=== PATIENT | male | born 1950 | race Caucasian/White ===

== ENCOUNTER 2020-06-10 08:00 | Outpatient (CLI) | payer OTHER | END 2020-06-10 23:59 | disposition home or self-care (01) | LOC: PETCFH 08:00 | PROVIDERS: ATTEND Internal Medicine Hematology & Oncology | DX: C67.8 Malignant neoplasm of overlapping sites of bladder (principal); R59.0 Localized enlarged lymph nodes; N28.1 Cyst of kidney, acquired | CPT/HCPCS: 78815; A9552 ==

== ENCOUNTER 2020-06-11 23:35 | Inpatient (IN) | payer OTHER ==
[~2020-06-11] VITALS: Ht 180.3 cm; Wt 83.1 kg
[2020-06-12] MEDS ORDERED: HYDROmorphone 1 MG/ML, 1ML INJ IV ONE (00:30)
[2020-06-12] MEDS ORDERED: ONDANSETRON 2MG/ML, 2ML IVPush ONE (00:30)
[2020-06-12] MEDS ORDERED: SODIUM CHLORIDE 0.9% 1,000ML IVBOLUS ONE (00:30)
[2020-06-12 00:38] LABS: BASOPHILS % (AUTO) 1 % (0-1); EOSINOPHILS % (AUTO) 7 % (1-7); LYMPHOCYTES % (AUTO) 17 % (22-44); MEAN CORPUSCULAR HEMOGLOBIN 34.7 pg (27.5-34.5); MEAN CORPUSCULAR HGB CONC 34.3 g/dL (33.2-36.2); MEAN PLATELET VOLUME 7.7 fL (7.4-10.4); MONOCYTES % (AUTO) 8 % (2-9); NEUTROPHILS % (AUTO) 68 % (42-75); PLATELET COUNT 189 x10^3/uL (130-400); RED BLOOD COUNT 2.78 x10^6/uL (4.38-5.82); RED CELL DISTRIBUTION WIDTH 15.5 % (9.4-14.8)
[2020-06-12 00:42] LABS: MD NO
[2020-06-12] MEDS ORDERED: HYDROmorphone 1 MG/ML, 1ML INJ ONE (00:42)
[2020-06-12] MEDS ORDERED: ONDANSETRON 2MG/ML, 2ML ONE (00:43)
[2020-06-12 00:46] LABS: ALANINE AMINOTRANSFERASE 26 U/L (12-78); ALBUMIN 3.4 g/dL (3.4-5.0); ANION GAP 9 mmol/L (5-15); CALCIUM 8.8 mg/dL (8.5-10.1); CHLORIDE 97 mmol/L (98-107)
[2020-06-12 00:48] LABS: ALKALINE PHOSPHATASE 145 U/L (45-117); BILIRUBIN,TOTAL 0.3 mg/dL (0.2-1.0); TOTAL PROTEIN 6.7 g/dL (6.4-8.2)
--- NOTE | 2020-06-12 00:58 | NUR ---
BROUGHT IN BY EMS. PT STATES HIS UROSTOMY HAS WORKED SINCE 1330 TODAY HAD BLADDER AND PROSTATE REMOVED ON 04/30/20 AND HAD UROSTOMY TUBE AND BAG PLACED. PT STATES HAD A STROKE THAT TURNED INTO A TIA 2 WEEKS AGO. STAYED AT [facility] FOR 5 DAYS. PT TAKES DAILY METOPEROL, BABY ASPRIN, AND ALLOPIRNOL FOR GOUT.
--- NOTE | 2020-06-12 01:01 | NUR ---
PT ALVARO CALLED AND LEFT HER NUMBER FOR UPDATE [phone].
--- NOTE | 2020-06-12 01:48 | NUR ---
TASK RN: URINE SAMPLE SENT FROM UROSTOMY 1L NS BOLUS COMPLETE WITH REASSESSMENT PAIN IMPROVED TO 3/10 PATIENT UPDATED ON ESTIMATED POC
[2020-06-12 02:21] LABS: MICROSCOPIC INDICATED
[2020-06-12] MEDS ORDERED: METO50TA82 PO (02:43)
[2020-06-12] MEDS ORDERED: ASPI-963 PO (02:43)
[2020-06-12] MEDS ORDERED: ALLO300T PO (02:43)
[2020-06-12] MEDS ORDERED: ACETAMINOPHEN 325 MG TABLET PO PRN (04:00)
[2020-06-12] MEDS ORDERED: hydrALAzine 20 MG/ML, 1ML IVPush PRN (04:00)
[2020-06-12] MEDS ORDERED: morphine SULFATE 10 MG/ML, 1ML IVPush PRN (04:00)
[2020-06-12] MEDS ORDERED: CEFTRIAXONE 1,000 MG in DEXTROSE 5% 50 ML IVPB ONE (04:00)
[2020-06-12] MEDS: SODIUM CHLORIDE 0.9% 1,000 ML IV SCH ×2 (04:00→16:05)
[2020-06-12] MEDS ORDERED: DOCUSATE 100 MG CAPSULE PO PRN (04:00)
[2020-06-12] MEDS ORDERED: ONDANSETRON 2MG/ML, 2ML IVPush PRN (04:00)
[2020-06-12] MEDS ORDERED: PROMETHAZINE 25 MG/ML, 1ML IM PRN (04:00)
[2020-06-12] MEDS: CEFTRIAXONE 1,000 MG in DEXTROSE 5% 50 ML IVPB SCH (04:09)
--- NOTE | 2020-06-12 04:38 | NUR ---
GAVE REPORT TO RYAN NIEVES RM 432.
[2020-06-12 06:43] VITALS: BP 127/63
[2020-06-12 12:18] LABS: CHLORIDE,URINE RANDOM 44 mmol/L; POTASSIUM,URINE RANDOM 16 mmol/L; SODIUM,URINE RANDOM 58 mmol/L
[2020-06-12 12:51] VITALS: BP 112/66
[2020-06-12 13:18] LABS: ANION GAP 7 mmol/L (5-15); CALCIUM 8.2 mg/dL (8.5-10.1); CHLORIDE 101 mmol/L (98-107); CREATININE 2.02 mg/dL (0.7-1.3)
[2020-06-12] MEDS: HYDROcodone/APAP 5/325 TABLET PO PRN ×2 (17:09→20:15)
[2020-06-12 18:50] VITALS: BP 128/69
[2020-06-13 01:13] VITALS: BP 142/60
[2020-06-13] MEDS: SODIUM CHLORIDE 0.9% 1,000 ML IV SCH (01:17)
[2020-06-13] MEDS: CEFTRIAXONE 1,000 MG in DEXTROSE 5% 50 ML IVPB SCH (03:41)
[2020-06-13 05:13] LABS: BASOPHILS % (AUTO) 0 % (0-1); EOSINOPHILS % (AUTO) 9 % (1-7); LYMPHOCYTES % (AUTO) 16 % (22-44); MEAN CORPUSCULAR HEMOGLOBIN 34.6 pg (27.5-34.5); MEAN CORPUSCULAR HGB CONC 33.9 g/dL (33.2-36.2); MONOCYTES % (AUTO) 7 % (2-9); NEUTROPHILS % (AUTO) 68 % (42-75); PLATELET COUNT 172 x10^3/uL (130-400); RED BLOOD COUNT 2.64 x10^6/uL (4.38-5.82); RED CELL DISTRIBUTION WIDTH 15.2 % (9.4-14.8)
[2020-06-13 05:15] LABS: MD NO
[2020-06-13 05:23] LABS: ALBUMIN 2.7 g/dL (3.4-5.0); ANION GAP 6 mmol/L (5-15); CALCIUM 8.3 mg/dL (8.5-10.1); CHLORIDE 106 mmol/L (98-107)
[2020-06-13 05:26] LABS: ALANINE AMINOTRANSFERASE 22 U/L (12-78); ALKALINE PHOSPHATASE 124 U/L (45-117); BILIRUBIN,TOTAL 0.2 mg/dL (0.2-1.0); CREATININE 1.07 mg/dL (0.7-1.3); TOTAL PROTEIN 5.4 g/dL (6.4-8.2)
[2020-06-13 06:46] VITALS: BP 147/66
[2020-06-13] MEDS ORDERED: CEFD300C37 PO (08:01)
== END 2020-06-13 09:41 | disposition home or self-care (01) | DRG 683 ==
LOC: ED 06-12 00:05 → SUATTDRO 06-12 03:41 → EDIP 06-12 03:48 → 4NW 06-12 05:10 → DCLOUNGE 06-13 09:36
PROVIDERS: ADMIT Family Medicine; ATTEND Hospitalist
DX: N17.9 Acute kidney failure, unspecified (principal); E87.1 Hypo-osmolality and hyponatremia; N30.01 Acute cystitis with hematuria; C78.6 Secondary malignant neoplasm of retroperitoneum and peritoneum; I10 Essential (primary) hypertension; M10.9 Gout, unspecified; D53.9 Nutritional anemia, unspecified; F17.210 Nicotine dependence, cigarettes, uncomplicated; E86.9 Volume depletion, unspecified; Z90.79 Acquired absence of other genital organ(s); Z93.6 Other artificial openings of urinary tract status; Z85.51 Personal history of malignant neoplasm of bladder; Z85.46 Personal history of malignant neoplasm of prostate; Z71.6 Tobacco abuse counseling; Z86.73 Personal history of transient ischemic attack (TIA), and cerebral infarction without residual deficits; Z79.899 Other long term (current) drug therapy; Z88.8 Allergy status to other drugs, medicaments and biological substances
CPT/HCPCS: 36415; 74018; 76770; 80048; 80053; 81001; 82436; 82570; 83690; 83935; 84133; 84300; 85025; 87040; 87086; 96361; 96374; 96375; G0378; J0696; J1170; J2405; J7030